=== PATIENT | female | born 1970 | race Caucasian/White ===

== ENCOUNTER 2018-08-08 21:07 | Emergency (ER) | payer OTHER ==
[~2018-08-08] VITALS: Ht 190.5 cm; Wt 136.4 kg
[2018-08-08] MEDS ORDERED: ASPIRIN 81 MG TABLET CHEW PO ONE (22:00)
[2018-08-08 22:12] LABS: BASOPHILS # (AUTO) 0.06 x10^3/uL (0-0.1); BASOPHILS % (AUTO) 1 % (0-1); EOSINOPHILS % (AUTO) 7 % (1-7); LYMPHOCYTES # (AUTO) 1.48 x10^3/uL (1-3.4); LYMPHOCYTES % (AUTO) 17 % (22-44); MD NO; MEAN CORPUSCULAR HEMOGLOBIN 29.7 pg (27.0-34.8); MEAN CORPUSCULAR HGB CONC 32.8 g/dL (32.4-35.8); MEAN CORPUSCULAR VOLUME 90.6 fL (80-100); MEAN PLATELET VOLUME 9.6 fL (7.4-10.4); MONOCYTES # (AUTO) 0.83 x10^3/uL (0.2-0.8); MONOCYTES % (AUTO) 9 % (2-9); NEUTROPHILS # (AUTO) 5.97 x10^3/uL (1.8-6.8); NEUTROPHILS % (AUTO) 67 % (42-75); PLATELET COUNT 223 x10^3/uL (130-400); RED BLOOD COUNT 4.48 x10^6/uL (3.82-5.3); RED CELL DISTRIBUTION WIDTH 13.9 % (9.6-15.2)
[2018-08-08 22:23] LABS: ALBUMIN 3.7 g/dL (3.4-5.0); ANION GAP 4 mmol/L (5-15); CALCIUM 8.4 mg/dL (8.5-10.1); CHLORIDE 112 mmol/L (98-107); CREATININE 0.94 mg/dL (0.55-1.02)
[2018-08-08 22:26] LABS: TROPONIN I < 0.015 ng/mL (0.000-0.045)
--- NOTE | 2018-08-08 22:27 | NUR ---
REPORT FROM RAMON BARNETT. PT IN [place].
[2018-08-08] MEDS ORDERED: ASPIRIN 81 MG TABLET CHEW ONE (22:44)
[2018-08-08] MEDS ORDERED: CETI10CA PO (22:48)
[2018-08-08] MEDS ORDERED: RANI150T23 PO (22:48)
--- NOTE | 2018-08-08 22:54 | NUR ---
PT HERE FOR CHEST PAIN THAT MOVES TO BACK. PAIN IS 8/10 AND COMES AND GOES IN INTENSITY. VSS. PT GIVEN ASA AND IS RESTING. SPOUSE AT BEDSIDE
[2018-08-08] MEDS ORDERED: MAALOX/HYOSCYAMINE/LIDOCAINE 45 ML BTL ONE (23:24)
[2018-08-08] MEDS ORDERED: MAALOX/HYOSCYAMINE/LIDOCAINE 45 ML BTL PO ONE (23:30)
--- NOTE | 2018-08-08 23:54 | NUR ---
PT BEDSIDE REPORT FROM NIGEL BARNETT. THIS RN TO ASSUME CARE OF PT.
[2018-08-09] MEDS ORDERED: LORazepam 2 MG/ML, 1ML IVP ONE
[2018-08-09] MEDS ORDERED: LORazepam 2 MG/ML, 1ML ONE (00:09)
--- NOTE | 2018-08-09 00:54 | NUR ---
PT STATES "MY CHEST STILL HURTS, BUT IM CHILL THOUGH." STATES A MILD INCREASE IN PAIN AND IS NO LONGER ROCKING IN BED IN PAIN.
[2018-08-09 01:33] VITALS: BP 130/77
[2018-08-09 02:10] LABS: TROPONIN I < 0.015 ng/mL (0.000-0.045)
[2018-08-09] MEDS ORDERED: OMNIPAQUE 350 MG/ML, 100ML BOTTLE ONE (05:00)
== END 2018-08-09 02:35 | disposition home or self-care (01) ==
LOC: ED 23:19
DX: R07.89 Other chest pain (principal); R42 Dizziness and giddiness
CPT/HCPCS: 36415; 71045; 71275; 80048; 82040; 83880; 84484; 85025; 85379; 93005; 93970; 96374; 99284; J2060; Q9967